=== PATIENT | male | born 2000 | race Caucasian/White ===

== ENCOUNTER 2023-12-21 09:26 | Day surgery (SDC) | payer BC ==
[~2023-12-21 09:26] MED LIST: Albuterol 0.083% 2.5 MG/3 ML Neb Soln NEB PRN; HYDROmorphone 1 MG/ML Syringe IVPUSH PRN; Metoclopramide 10 MG/2 ML SDV IVPUSH PRN; Morphine 2 MG/ML SYRINGE IVPUSH PRN; Naloxone 0.4 MG/ML SDV IVPUSH PRN; Ondansetron 4 MG/2 ML SDV IVPUSH PRN; ceFAZolin 2 GM in Sodium Chloride 0.9% 50 ML IV ONE; droPERidol 5 MG/2 ML SDV IVPUSH PRN; fentaNYL 50 MCG/ML SDV IVPUSH PRN
[2023-12-21] MEDS ORDERED: Rocuronium Bromide 50 MG/5 ML Syringe ONE (09:30)
[2023-12-21] MEDS ORDERED: Lidocaine 2% 5 ML SDV ONE ×3 (09:30→09:51)
[2023-12-21] MEDS ORDERED: Sugammadex Sodium 200 MG/2 ML VIAL IV ONE (09:30)
[2023-12-21] MEDS ORDERED: Dexamethasone 4 MG/ML 5 ML MDV ONE (09:30)
[2023-12-21] MEDS ORDERED: Ondansetron 4 MG/2 ML SDV ONE (09:30)
[2023-12-21] MEDS ORDERED: Bupivacaine 0.5% 30 ML SDV ONE (09:30)
[2023-12-21] MEDS ORDERED: fentaNYL 100 MCG/2 ML SDV ONE (09:31)
[2023-12-21] MEDS ORDERED: dexmedeTOMIDine HCl 200 MCG/2 ML SDV ONE (09:32)
[2023-12-21] MEDS ORDERED: propofoL 100 ML ONE (09:33)
[2023-12-21] MEDS ORDERED: Water For Injection, Sterile 20 ML ONE (09:33)
[2023-12-21] MEDS: Lactated Ringers 1,000 ML IV SCH (09:40)
[2023-12-21] MEDS ORDERED: ceFAZolin 1 GM Vial ONE (10:30)
[2023-12-21] MEDS ORDERED: Propofol 200 MG/20 ML SDV ONE ×4 (10:59→12:19)
[2023-12-21] MEDS ORDERED: Ketorolac 30 MG/ML SDV ONE (13:18)
== END 2023-12-21 14:00 | disposition home or self-care (01) ==
LOC: MW.SDS 09:26
PROVIDERS: ATTEND Orthopaedic Surgery
DX: S42.321A Displaced transverse fracture of shaft of humerus, right arm, initial encounter for closed fracture (principal); X58.XXXA Exposure to other specified factors, initial encounter
CPT/HCPCS: 24515; 64415; 76000; J0665; J0690; J1100; J1885; J2405; J2704; J3010; J3490; J7120; 01740; C1713; C1776